=== PATIENT | female | born 1995 | race Two or more races ===

== ENCOUNTER → 2024-09-28 | Outpatient (CLI) | payer MEDICAID, SELFPAY ==
--- NOTE | 2024-09-28 09:30 | XR_ITS ---
Examination: Thyroid sonography complete TECHNIQUE: Grayscale sonographic images thyroid lobes Date and time: 2024 0940 hours INDICATIONS: Abnormal thyroid laboratory examinations 5 months ago, neck pain one month FINDINGS: Right thyroid 3.6 cm Left thyroid 4.3 cm No solid nodules IMPRESSION: Negative examination
== END | disposition home or self-care (01) ==
PROVIDERS: PCP Family Medicine; Referring Provider Family Medicine; Visit Provider Family Medicine
DX: R94.6 Abnormal results of thyroid function studies (principal)
CPT/HCPCS: 76536